=== PATIENT | female | born 1990 | race Caucasian/White ===

== ENCOUNTER 2016-12-08 17:47 | Emergency (ER) | payer SELFPAY ==
--- NOTE | 2016-12-08 18:09 | Emergency Department Record ---
History of Present Illness - General Chief Complaint: Abdominal Pain Stated Complaint: ABD PAIN Time Seen by Provider: 12/08/16 18:09 Source: Patient Mode of Arrival: Ambulatory Limitations: No limitations - History of Present Illness Initial Comments: The patient is here due to a week to 10 days of a sharp crampy AP that hurts all over and shoots down to the pelvis intermittently. She has had mild nausea with it but no vomiting. She also denies any dysuria, fever, or any vaginal discharge. The patient was slightly late for her last menses but now has started it 6 days late compared to her normal pattern. MD Complaint: Abdominal pain Onset/Timin -: Week(s) Location: Suprapubic Radiation: RLQ Migration to: RLQ Quality: Cramping, Sharp Consistency: Intermittent Improves With: Nothing Worsens With: Nothing Associated Symptoms: Nausea - Related Data LMP (females 10-50): Current Patient : (unsure) Home Medications Medication Instructions Recorded Confirmed Last Taken No Home Med [NO HOME MEDS] 12/08/16 12/08/16 Unknown Allergies Allergy/AdvReac Type Severity Reaction Status Date / Time No Known Allergies Allergy no Verified 12/08/16 18:43 allergies Travel Screening - Travel/Exposure Within Last 30 Days Have you traveled within the last 30 days?: No Review of Systems Constitutional: Denies: Chills, Fever Eyes: Denies: Eye discharge ENT: Denies: Congestion Respiratory: Denies: Cough, Dyspnea Past Medical History - SOCIAL HISTORY Smoking Status: Current every day smoker Alcohol Use: Occassional Drug Use: None - RESPIRATORY Hx Respiratory Disorders: No - CARDIOVASCULAR Hx Cardio Disorders: No - NEURO Hx Neuro Disorders: No - GI Hx GI Disorders: No - Hx Genitourinary Disorders: Yes Hx UTI: Yes - ENDOCRINE Hx Endocrine Disorders: No - MUSCULOSKELETAL Hx Musculoskeletal Disorders: No - PSYCH Hx Psych Problems: No - HEMATOLOGY/ONCOLOGY Hx Hematology/Oncology Disorders: No Family Medical History Any Significant Family History?: No Physical Exam - General General Appearance: Alert, Oriented x3, Cooperative, No acute distress - Head Head exam: Atraumatic, Normocephalic, Normal inspection - Eye Eye exam: Normal appearance, PERRL - Neck Neck exam: Normal inspection, Full ROM. negative: Tenderness - Respiratory Respiratory exam: Normal lung sounds bilaterally. negative: Respiratory distress - Cardiovascular Cardiovascular Exam: Regular rate, Normal rhythm, Normal heart sounds - GI/Abdominal GI/Abdominal exam: Soft, Tenderness (There is diffuse tenderness in all 4 quads with increased pain in the lower abdomen. There is no guarding or rebound.). negative: Guarding, Rebound, Rigid - exam: Adnexal tenderness (L), Adnexal tenderness (R), cervical motion tenderness, Normal external exam, Vaginal bleeding (Mild.). negative: Abnormal external exam, Adnexal mass (L), Adnexal mass (R), Cervical discharge, Enlarged uterus, Normal bimanual exam, Normal speculum exam, Vaginal discharge, Vaginal erythema - Extremities Extremities exam: Normal inspection, Full ROM, Normal capillary refill. negative: Tenderness - Neurological Neurological exam: Normal gait. negative: Abnormal gait Course Vital Signs 12/08/16 17:51 Temperature 97.5 F L Pulse Rate 86 Respiratory 20 Rate Blood Pressure 118/73 Pulse Ox 100 - Reevaluation(s) Reevaluation #1: The patient's care will be turned over to Dr. Ivy due to shift change. 12/08/16 18:53 Medical Decision Making - Lab Data Result diagrams: 12/08/16 18:20 12/08/16 18:20 Disposition Forms: Patient Portal Access
[2016-12-08] MEDS ORDERED: 0.9 % SODIUM CHLORIDE 1,000 ML BAG IV ONE (18:11)
[2016-12-08] MEDS ORDERED: ONDANSETRON HCL IV 4 MG/2 ML VIAL IVP ONE (18:19)
[2016-12-08 18:27] LABS: URINE APPEARANCE CLEAR; URINE BILIRUBIN NEGATIVE (NEGATIVE); URINE BLOOD NEGATIVE (NEGATIVE); URINE COLOR YELLOW; URINE GLUCOSE (UA) NEGATIVE (NEGATIVE); URINE KETONE NEGATIVE (NEGATIVE); URINE LEUKOCYTE ESTERASE NEGATIVE (NEGATIVE); URINE NITRITE NEGATIVE (NEGATIVE); URINE PROTEIN NEGATIVE (NEGATIVE); URINE UROBILINOGEN 0.2 E.U./dL (0.20 - 1.00)
[2016-12-08 18:30] LABS: BASO % 0.4 % (0-6); EOS % 1.3 % (0-6); GRAN % 70.1 % (47-80); HEMATOCRIT 37.9 % (35.0-47.0); HEMOGLOBIN 12.9 gm/dl (11.6-16.0); LYMPH % 19.3 % (16-45); MEAN CELL VOLUME 90.9 fl (81-97); MEAN CORPUSCULAR HEMOGLOBIN 30.9 pg (27-33); MEAN PLATELET VOLUME 11.1 fl (7.4-10.4); MONO % 8.9 % (0-9); PLATELET COUNT 225 K/uL (130-400); RED BLOOD COUNT 4.17 M/uL (3.80-5.40); RED CELL DISTRIBUTION WIDTH 12.9 % (11.5-14.5); WHITE BLOOD COUNT W/O DIFF 9.5 K/uL (4.2-12.2)
[2016-12-08] MEDS ORDERED: MORPHINE SULFATE 5 MG/ML PFS IVP ONE (18:30)
[2016-12-08 18:44] LABS: ALBUMIN 4.7 gm/dL (3.5-5.0); ALKALINE PHOSPHATASE 58 U/L (38-126); ALT/SGPT 22 U/L (9-52); ANION GAP 15.9 (7-16); AST/SGOT 19 U/L (14-36); BILIRUBIN,TOTAL 0.66 mg/dL (0.2-1.3); BLOOD UREA NITROGEN 7 mg/dL (7-17); CARBON DIOXIDE 23.1 mmol/L (22-30); CREATININE 0.7 mg/dL (0.52-1.04); EST GLOMERULAR FILTRATION RATE > 60 ml/min; GLUCOSE,RANDOM 87 mg/dL (70-110); LIPASE 37 U/L (23-300); TOTAL PROTEIN 7.2 gm/dL (6.3-8.2)
--- NOTE | 2016-12-08 19:10 | Emergency Department Record ---
History of Present Illness - General Chief Complaint: Abdominal Pain Stated Complaint: ABD PAIN Time Seen by Provider: 12/08/16 18:09 Source: Patient Mode of Arrival: Ambulatory Limitations: No limitations - History of Present Illness Initial Comments: 26 yo female presents with 10 days of pelvic pain She was seen by Dr Naik and turned over at 7pm The patient is currently in US. MD Complaint: Abdominal pain Onset/Timin -: Week(s) Location: Suprapubic Radiation: RLQ Migration to: RLQ Quality: Cramping, Sharp Consistency: Intermittent Improves With: Nothing Worsens With: Nothing Associated Symptoms: Nausea - Related Data LMP (females 10-50): Current Patient : (unsure) Home Medications Medication Instructions Recorded Confirmed Last Taken No Home Med [NO HOME MEDS] 12/08/16 12/08/16 Unknown Allergies Allergy/AdvReac Type Severity Reaction Status Date / Time No Known Allergies Allergy no Verified 12/08/16 18:43 allergies Travel Screening - Travel/Exposure Within Last 30 Days Have you traveled within the last 30 days?: No Review of Systems Constitutional: Denies: Chills, Fever Eyes: Denies: Eye discharge ENT: Denies: Congestion Respiratory: Denies: Cough, Dyspnea Past Medical History - SOCIAL HISTORY Smoking Status: Current every day smoker Alcohol Use: Occassional Drug Use: None - RESPIRATORY Hx Respiratory Disorders: No - CARDIOVASCULAR Hx Cardio Disorders: No - NEURO Hx Neuro Disorders: No - GI Hx GI Disorders: No - Hx Genitourinary Disorders: Yes Hx UTI: Yes - ENDOCRINE Hx Endocrine Disorders: No - MUSCULOSKELETAL Hx Musculoskeletal Disorders: No - PSYCH Hx Psych Problems: No - HEMATOLOGY/ONCOLOGY Hx Hematology/Oncology Disorders: No Family Medical History Any Significant Family History?: No Physical Exam - General Limitations: No limitations Course Vital Signs 12/08/16 17:51 Temperature 97.5 F L Pulse Rate 86 Respiratory 20 Rate Blood Pressure 118/73 Pulse Ox 100 - Reevaluation(s) Reevaluation #1: The patient remains in US. 12/08/16 20:21 Reevaluation #2: The patient returned from radiology She reports she is very comfortable. She declined any additional pain medications US is pending I reviewed the labs including CBC,UA and negative HCG with the patient. 12/08/16 20:51 Reevaluation #3: The US was reviewed Bilateral ovarian cysts, complex 4cm, small FF, positive flow bilateral I discussed the US reports I discussed treating with Rocephin and Zithro while the cultures are pending given the discomfort on the pelvic examination She is in agreement 12/08/16 21:10 Medical Decision Making - Lab Data Result diagrams: 12/08/16 18:20 12/08/16 18:20 Lab Results 12/08/16 12/08/16 12/08/16 Range/Units 18:20 18:20 18:20 WBC 9.5 (4.2-12.2) K/uL RBC 4.17 (3.80-5.40) M/uL Hgb 12.9 (11.6-16.0) gm/dl Hct 37.9 (35.0-47.0) % MCV 90.9 (81-97) fl MCH 30.9 (27-33) pg MCHC 34.0 (32-36) g/dl RDW 12.9 (11.5-14.5) % Plt Count 225 (130-400) K/uL MPV 11.1 H (7.4-10.4) fl Gran % 70.1 (47-80) % Lymphocytes % 19.3 (16-45) % Monocytes % 8.9 (0-9) % Eosinophils % 1.3 (0-6) % Basophils % 0.4 (0-6) % Sodium 140 (136-145) mmol/L Potassium 3.7 (3.5-5.1) mmol/L Chloride 101 (98-107) mmol/L Carbon Dioxide 23.1 (22-30) mmol/L Anion Gap 15.9 (7-16) BUN 7 (7-17) mg/dL Creatinine 0.7 (0.52-1.04) mg/dL Estimated GFR > 60 ml/min Random Glucose 87 (70-110) mg/dL Calcium 9.2 (8.5-10.1) mg/dL Total Bilirubin 0.66 (0.2-1.3) mg/dL Direct Bilirubin 0.0 (0-0.3) mg/dL AST 19 (14-36) U/L ALT 22 (9-52) U/L Alkaline Phosphatase 58 (38-126) U/L Total Protein 7.2 (6.3-8.2) gm/dL Albumin 4.7 (3.5-5.0) gm/dL Lipase 37 (23-300) U/L Serum HCG, Qual (NEGATIVE) Urine Color Yellow Urine Appearance Clear Urine pH 7.5 (5.0-8.0) Ur Specific [place] 1.015 (1.002-1.030) Urine Protein Negative (NEGATIVE) Urine Glucose (UA) Negative (NEGATIVE) Urine Ketones Negative (NEGATIVE) Urine Blood Negative (NEGATIVE) Urine Nitrite Negative (NEGATIVE) Urine Bilirubin Negative (NEGATIVE) Urine Urobilinogen 0.2 (0.20 - 1.00) E.U./dL Ur Leukocyte Esterase Negative (NEGATIVE) Wet Prep 12/08/16 12/08/16 Range/Units 18:20 18:32 WBC (4.2-12.2) K/uL RBC (3.80-5.40) M/uL Hgb (11.6-16.0) gm/dl Hct (35.0-47.0) % MCV (81-97) fl MCH (27-33) pg MCHC (32-36) g/dl RDW (11.5-14.5) % Plt Count (130-400) K/uL MPV (7.4-10.4) fl Gran % (47-80) % Lymphocytes % (16-45) % Monocytes % (0-9) % Eosinophils % (0-6) % Basophils % (0-6) % Sodium (136-145) mmol/L Potassium (3.5-5.1) mmol/L Chloride (98-107) mmol/L Carbon Dioxide (22-30) mmol/L Anion Gap (7-16) BUN (7-17) mg/dL Creatinine (0.52-1.04) mg/dL Estimated GFR ml/min Random Glucose (70-110) mg/dL Calcium (8.5-10.1) mg/dL Total Bilirubin (0.2-1.3) mg/dL Direct Bilirubin (0-0.3) mg/dL AST (14-36) U/L ALT (9-52) U/L Alkaline Phosphatase (38-126) U/L Total Protein (6.3-8.2) gm/dL Albumin (3.5-5.0) gm/dL Lipase (23-300) U/L Serum HCG, Qual Negative (NEGATIVE) Urine Color Urine Appearance Urine pH (5.0-8.0) Ur Specific [place] (1.002-1.030) Urine Protein (NEGATIVE) Urine Glucose (UA) (NEGATIVE) Urine Ketones (NEGATIVE) Urine Blood (NEGATIVE) Urine Nitrite (NEGATIVE) Urine Bilirubin (NEGATIVE) Urine Urobilinogen (0.20 - 1.00) E.U./dL Ur Leukocyte Esterase (NEGATIVE) Wet Prep No trich or yeast Disposition Disposition: Discharge Clinical Impression: Cyst of ovary Qualifiers: Laterality: bilateral Qualified Code(s): N83.201 - Unspecified ovarian cyst, right side; N83.202 - Unspecified ovarian cyst, left side Disposition: Home, Self-Care Condition: (1) Good Instructions: Ovarian Cyst (ED) Additional Instructions: Motrin for discomfort Return if you have uncontrolled pain, fever, vomiting or concerns You are being referred to [facility]BGYN at the [facility] Referrals: ERICKA NASH [DOCTOR OF OSTEOPATH] - [facility] [Provider Group] Forms: Patient Portal Access Time of Disposition: 21:12
[2016-12-08] MEDS ORDERED: ONDANSETRON 4 MG ODT TABLET SL ONE (21:08)
[2016-12-08] MEDS ORDERED: CEFTRIAXONE 250 MG VIAL IM ONE (21:08)
[2016-12-08] MEDS ORDERED: AZITHROMYCIN 500 MG TABLET PO ONE (21:08)
[2016-12-08] MEDS ORDERED: IBUPROFEN 600 MG TABLET PO ONE (21:31)
[2016-12-12 17:14] LABS: GC SPECIMEN TYPE Vaginal (())
--- NOTE | 2016-12-14 10:33 | ULTRASOUND REPORT ---
DATE: 12/08/2016. EXAM: PELVIC ULTRASOUND. HISTORY: Pelvic pain. TECHNIQUE: Transvaginal and transabdominal sonographic evaluation of the pelvis was performed using lazo-scale imaging with the addition of color flow Doppler and spectral analysis. FINDINGS: The uterus measures 7.8 x 3.7 x 5.3 cm. The endometrial stripe measures 6.0 mm. The right ovary measures 4.3 x 2.3 x 3.5 cm. The left ovary measures 5.8 x 4.5 x 6.8 cm. There are two complex cysts in the left ovary measuring approximately 4.0 cm and 2.0 cm. There is a complex cyst in the right ovary measuring 3.0 cm. There is flow identified through the right and left ovaries. There is free fluid in the cul-de-sac. IMPRESSION: COMPLEX CYSTS OF BOTH OVARIES DESCRIBED ABOVE. THERE APPEARS TO BE FLOW IDENTIFIED TO BOTH OVARIES. THERE IS FREE FLUID IN THE CUL-DE-SAC. SHORT-TERM FOLLOW UP IN ONE TO TWO MENSTRUAL CYCLES IS RECOMMENDED. JOB NUMBER: [id number] MTDD
== END 2016-12-08 21:45 | disposition home or self-care (01) ==
LOC: ER 17:47
DX: N83.202 Unspecified ovarian cyst, left side (principal); N83.201 Unspecified ovarian cyst, right side; R11.0 Nausea; R10.31 Right lower quadrant pain
CPT/HCPCS: 99284 ×2; 96374; 96372; 83690; 85025; 80076; 80048; 81003; 84703; 76856; 76830; Q0111; J2405; J0696; 87210; J7030

== ENCOUNTER 2017-02-25 03:36 | Emergency (ER) | payer MEDICAID ==
[2017-02-25] MEDS ORDERED: KETOROLAC 30 MG/ML VIAL IVP ONE (04:17)
--- NOTE | 2017-02-25 04:23 | Emergency Department Record ---
History of Present Illness - General Chief Complaint: Abdominal Pain Stated Complaint: EXTREME PELVIC PAIN Time Seen by Provider: 02/25/17 04:16 Source: Patient Mode of Arrival: Ambulatory Limitations: No limitations - History of Present Illness Initial Comments: 27 yo female presents to ED with a CC of diffuse abdominal pain and right shoulder pain symptoms intermittently for the past 3 months. Patient reports that she was seen 12/08/16 in ED, pelvic US demonstrated small cysts bilaterally and fluid in the cul-de-sac, pelvic examination was negative. Patient then followed up with Dr. Ramon, was diagnosed with cervical dysplaisa III and is scheduled for a LEEP procedure next month. Patient also has an appointment scheduled with her outdoor studies director Dr. Chin on 03/07/17 for her ongoing pain symptoms. Patient does report dysuria symptoms, denies vaginal discharge symptoms and reports that she is in a monogamous relationship. Patient denies fevers, chills, nausea, or vomiting symptoms. Patient reports that her pain symptoms are similar to previous episodes. MD Complaint: Abdominal pain Onset/Timin -: Hour(s) Location: Diffuse Radiation: Other Severity: Severe Quality: Other Consistency: Constant Improves With: Nothing Worsens With: Movement Associated Symptoms: Dysuria Treatments Prior to Arrival: NSAIDs - Related Data LMP (females 10-50): Current Patient : No Previous Rx's Medication Instructions Recorded Hydrocodone/Acetaminophen [[place] 1 tab PO Q6H PRN #5 tab 02/25/17 5mg/325mg] Ondansetron [Zofran Odt] 4 mg PO Q6H PRN #10 tab.rapdis 02/25/17 Allergies Allergy/AdvReac Type Severity Reaction Status Date / Time No Known Allergies Allergy no Verified 12/08/16 18:43 allergies Travel Screening - Travel/Exposure Within Last 30 Days Have you traveled within the last 30 days?: No - Travel Symptoms Symptom Screening: None Review of Systems Constitutional: Denies: Chills, Fever, Malaise, Night sweats Eyes: Denies: Eye discharge, Eye pain ENT: Denies: Congestion, Ear pain, Epistaxis Respiratory: Denies: Cough, Dyspnea Cardiovascular: Denies: Chest pain, Dyspnea on exertion Endocrine: Denies: Fatigue, Heat or cold intolerance Gastrointestinal: Reports: Abdominal pain. Denies: Constipation, Diarrhea, Nausea, Vomiting Genitourinary: Reports: Dysuria. Denies: Frequency, Hematuria, Incontinence Musculoskeletal: Denies: Arthralgia, Back pain, Gout, Joint swelling Skin: Denies: Bruising, Change in color, Change in hair/nails, Rash Neurological: Denies: Abnormal gait, Confusion, Headache, Seizure Psychiatric: Denies: Anxiety Hematological/Lymphatic: Denies: Anemia, Blood Clots Past Medical History - SOCIAL HISTORY Smoking Status: Current every day smoker - [employer] History : 0 - RESPIRATORY Hx Respiratory Disorders: No - CARDIOVASCULAR Hx Cardio Disorders: No - NEURO Hx Neuro Disorders: No - GI Hx GI Disorders: No - Hx Genitourinary Disorders: Yes Hx Kidney Stones: Yes (2008) Hx UTI: Yes Comment:: colposcopy - ENDOCRINE Hx Endocrine Disorders: No - MUSCULOSKELETAL Hx Musculoskeletal Disorders: No - PSYCH Hx Psych Problems: No - HEMATOLOGY/ONCOLOGY Hx Hematology/Oncology Disorders: No Family Medical History Any Significant Family History?: Yes Hx Cancer: Mother, Grandparents *Cancer Comment: mom w/cervical Physical Exam - General General Appearance: Alert, Oriented x3, Cooperative, Moderate distress, Other ( patient is tearful on examination, denies opiate pain medication for her symptoms when offered.) Limitations: No limitations - Head Head exam: Atraumatic, Normocephalic, Normal inspection Head exam detail: negative: Abrasion, Contusion, Jarvis's sign, General tenderness, Hematoma, Laceration - Eye Eye exam: Normal appearance. negative: Conjunctival injection, Periorbital swelling, Periorbital tenderness, Scleral icterus - ENT Ear exam: negative: Auricular hematoma, Auricular trauma Nasal Exam: negative: Active bleeding, Discharge, Dried blood, Foreign body Mouth exam: negative: Drooling, Laceration, Muffled voice, Tongue elevation - Neck Neck exam: Normal inspection. negative: Meningismus, Tenderness - Respiratory Respiratory exam: Normal lung sounds bilaterally. negative: Rales, Respiratory distress, Rhonchi, Stridor - Cardiovascular Cardiovascular Exam: Regular rate, Normal rhythm, Normal heart sounds - GI/Abdominal GI/Abdominal exam: Soft, Tenderness, Other (Diffuse TTP on examination, no rebound, guarding is present.). negative: Rebound, Rigid - Rectal Rectal exam: Deferred - exam: Deferred - Extremities Extremities exam: Normal inspection. negative: Pedal edema, Tenderness - Back Back exam: Denies: CVA tenderness (R), CVA tenderness (L) - Neurological Neurological exam: Alert, Normal gait, Oriented X3 - Psychiatric Psychiatric exam: Normal affect, Normal mood - Skin Skin exam: Normal color. negative: Abrasion Type of lesion: negative: abrasion Course Vital Signs 02/25/17 04:10 Temperature 99.0 F Pulse Rate [ 80 Pulse Ox Probe] Respiratory 18 Rate Blood Pressure 118/74 [Left Arm] Pulse Ox 99 - Reevaluation(s) Reevaluation #1: 02/25/17 04:23 Previous records reviewed: US 12/08/16 Pelvis: Bilateral cysts, good flow bilaterally, fluids in the cul-de-sac, nothing acute. I discussed performing pelvic examination to exclude pelvic infection as a source of the patient's symptoms, patient is declining as she denies vaginal discharge symptoms and reports two recent pelvic symptoms that were negative for infection and has pelvic examination scheduled for 03/07/17 with her OB. Patient is declining opiate pain medication for her symptoms at this time. Will administer Toradol and reassess. Given the patient's abdominal examination findings, will perform CT imaging to exclude an acute surgical process. Reevaluation #2: 02/25/17 06:18 Labs reviewed and are grossly unremarkable for an acute process. CT Abdomen and Pelvis: Left ovary may be c/w endometrioma Patient was updated on all results, reports that her pain symptoms are slightly better. Will administer [place] and Zofran, and appears stable for discharge at this time. Medical Decision Making - Lab Data Result diagrams: 02/25/17 04:25 02/25/17 04:25 Disposition Disposition: Discharge Clinical Impression: Abdominal pain Qualifiers: Abdominal location: generalized Qualified Code(s): R10.84 - Generalized abdominal pain Disposition: Home, Self-Care Condition: (2) Stable Instructions: Abdominal Pain (ED) Additional Instructions: Return to ED if your symptoms worsen or if you have any concerns. Follow-up with Dr. Ramon/Giuseppe in 3-5 days as directed. [place] and Zofran as directed. Prescriptions: Hydrocodone/Acetaminophen [[place] 5mg/325mg] 1 tab PO Q6H PRN #5 tab PRN Reason: Pain - General Ondansetron [Zofran Odt] 4 mg PO Q6H PRN #10 tab.rapdis PRN Reason: Nausea/Vomiting Forms: Patient Portal Access Time of Disposition: 04:28
[2017-02-25] MEDS ORDERED: 0.9 % SODIUM CHLORIDE 1000ML 1,000 ML IV SCH (04:30)
[2017-02-25 04:36] LABS: BASO % 0.2 % (0-6); EOS % 0.4 % (0-6); HEMATOCRIT 35.9 % (35.0-47.0); HEMOGLOBIN 11.9 gm/dl (11.6-16.0); LYMPH % 6.8 % (16-45); MEAN CELL VOLUME 91.3 fl (81-97); MEAN CORPUSCULAR HEMOGLOBIN 30.3 pg (27-33); MEAN CORPUSCULAR HGB CONC 33.1 g/dl (32-36); MEAN PLATELET VOLUME 10.6 fl (7.4-10.4); MONO % 5.8 % (0-9); PLATELET COUNT 211 K/uL (130-400); RED BLOOD COUNT 3.93 M/uL (3.80-5.40); RED CELL DISTRIBUTION WIDTH 12.5 % (11.5-14.5); WHITE BLOOD COUNT W/O DIFF 12.1 K/uL (4.2-12.2)
[2017-02-25 04:46] LABS: ALB/GLOB RATIO 1.6 (1.1-1.8); ALBUMIN 4.2 gm/dL (3.5-5.0); ALKALINE PHOSPHATASE 59 U/L (38-126); ALT/SGPT 29 U/L (9-52); ANION GAP 10.7 (7-16); AST/SGOT 27 U/L (14-36); BILIRUBIN,TOTAL 1.04 mg/dL (0.2-1.3); BLOOD UREA NITROGEN 11 mg/dL (7-17); CARBON DIOXIDE 24.3 mmol/L (22-30); CREATININE 0.8 mg/dL (0.52-1.04); EST GLOMERULAR FILTRATION RATE > 60 ml/min; GLUCOSE,RANDOM 108 mg/dL (70-110); LIPASE 40 U/L (23-300); TOTAL PROTEIN 6.8 gm/dL (6.3-8.2)
[2017-02-25 05:15] LABS: URINE APPEARANCE CLEAR; URINE BILIRUBIN NEGATIVE (NEGATIVE); URINE BLOOD LARGE (NEGATIVE); URINE COLOR YELLOW; URINE GLUCOSE (UA) NEGATIVE (NEGATIVE); URINE KETONE NEGATIVE (NEGATIVE); URINE LEUKOCYTE ESTERASE NEGATIVE (NEGATIVE); URINE NITRITE NEGATIVE (NEGATIVE); URINE PROTEIN NEGATIVE (NEGATIVE)
[2017-02-25 05:18] LABS: HCG,QUALITATIVE URINE NEGATIVE (NEGATIVE)
[2017-02-25 05:24] LABS: URINE AMORPHOUS SEDIMENT 4+; URINE EPITHELIAL CELLS 0 - 2 (FEW); URINE RBC 16 - 25 (NONE SEEN); URINE WBC 0 - 2 (0-2/hpf)
[2017-02-25] MEDS ORDERED: ONDANSETRON 4 MG ODT TABLET SL ONE (06:23)
[2017-02-25] MEDS ORDERED: HYDROCODONE/APAP 7.5/325MG TABLET PO ONE (06:23)
== END 2017-02-25 06:44 | disposition home or self-care (01) ==
LOC: ER 03:36
DX: R10.84 Generalized abdominal pain (principal); R30.0 Dysuria; M25.511 Pain in right shoulder
CPT/HCPCS: 74177; 80053; 81001; 81025; 83690; 85027; 96374; 99284; J1885; J7030

== ENCOUNTER 2017-04-28 09:28 | Emergency (ER) | payer MEDICAID ==
[2017-04-28] MEDS ORDERED: 0.9 % SODIUM CHLORIDE 1,000 ML BAG IV ONE (10:06)
[2017-04-28] MEDS ORDERED: KETOROLAC 30 MG/ML VIAL IVP ONE (10:06)
[2017-04-28 10:38] LABS: BASO % 0.3 % (0-6); EOS % 1.4 % (0-6); GRAN % 76.9 % (47-80); HEMATOCRIT 39.4 % (35.0-47.0); HEMOGLOBIN 13.1 gm/dl (11.6-16.0); LYMPH % 15.3 % (16-45); MEAN CELL VOLUME 88.9 fl (81-97); MEAN CORPUSCULAR HEMOGLOBIN 29.6 pg (27-33); MEAN CORPUSCULAR HGB CONC 33.2 g/dl (32-36); MEAN PLATELET VOLUME 10.6 fl (7.4-10.4); MONO % 6.1 % (0-9); PLATELET COUNT 283 K/uL (130-400); RED BLOOD COUNT 4.43 M/uL (3.80-5.40); RED CELL DISTRIBUTION WIDTH 12.9 % (11.5-14.5); WHITE BLOOD COUNT W/O DIFF 9.9 K/uL (4.2-12.2)
[2017-04-28 10:42] LABS: URINE APPEARANCE CLEAR; URINE BILIRUBIN NEGATIVE (NEGATIVE); URINE BLOOD NEGATIVE (NEGATIVE); URINE COLOR YELLOW; URINE GLUCOSE (UA) NEGATIVE (NEGATIVE); URINE KETONE NEGATIVE (NEGATIVE); URINE LEUKOCYTE ESTERASE NEGATIVE (NEGATIVE); URINE NITRITE NEGATIVE (NEGATIVE); URINE PROTEIN NEGATIVE (NEGATIVE); URINE UROBILINOGEN 0.2 E.U./dL (0.20 - 1.00)
[2017-04-28 10:45] LABS: HCG,QUALITATIVE URINE NEGATIVE (NEGATIVE)
--- NOTE | 2017-04-28 10:54 | Emergency Department Record ---
History of Present Illness - General Chief Complaint: Abdominal Pain Stated Complaint: PELVIC PAIN Time Seen by Provider: 04/28/17 09:59 Source: Patient Mode of Arrival: Ambulatory Limitations: No limitations - History of Present Illness Initial Comments: pt has had an hour of rlq pain that was significant and now has lessened. she has had this in the past 5 months and has had a previous ct and us which showed a complex mass/cyst . a repeat ultrasound was recommended. 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 MD Complaint: Abdominal pain Onset/Timin -: Hour(s) Location: RLQ Radiation: Suprapubic Migration to: No migration Severity: Mild Quality: Sharp Consistency: Constant Improves With: Other Worsens With: Nothing Associated Symptoms: Diarrhea, Nausea - Related Data LMP Date: 04/18/17 Patient : No Allergies Allergy/AdvReac Type Severity Reaction Status Date / Time No Known Allergies Allergy no Verified 04/28/17 09:36 allergies Travel Screening - Travel/Exposure Within Last 30 Days Have you traveled within the last 30 days?: No - Travel/Exposure Within Last Year Have you traveled outside the [place] in the last year?: No Review of Systems Reviewed: No additional complaints except as noted below Constitutional: Reports: As per HPI. Denies: Chills, Fever, Malaise, Night sweats, Weakness, Weight change Eyes: Reports: As per HPI. Denies: Eye discharge, Eye pain, Photophobia, Vision change ENT: Reports: As per HPI. Denies: Congestion, Dental pain, Ear pain, Epistaxis , Hearing loss, Throat pain Respiratory: Reports: As per HPI. Denies: Cough, Dyspnea, Hemoptysis, Stridor, Wheezes Cardiovascular: Reports: As per HPI. Denies: Arrhythmia, Chest pain, Dyspnea on exertion, Edema, Murmurs, Orthopnea, Palpitations, Paroxysmal nocturnal dyspnea, Rheumatic Fever, Syncope Endocrine: Reports: As per HPI. Denies: Fatigue, Heat or cold intolerance, Polydipsia, Polyuria Gastrointestinal: Reports: As per HPI. Denies: Abdominal pain, Constipation, Diarrhea, Hematemesis, Hematochezia, Melena, Nausea, Vomiting Genitourinary: Reports: As per HPI. Denies: Abnormal menses, Discharge, Dyspareunia, Dysuria, Frequency, Hematuria, Incontinence, Retention, Urgency Musculoskeletal: Reports: As per HPI. Denies: Arthralgia, Back pain, Gout, Joint swelling, Myalgia, Neck pain Skin: Reports: As per HPI. Denies: Bruising, Change in color, Change in hair/ nails, Lesions, Pruritus, Rash Neurological: Reports: As per HPI. Denies: Abnormal gait, Confusion, Headache, Numbness, Paresthesias, Seizure, Tingling, Tremors, Vertigo, Weakness Psychiatric: Reports: As per HPI. Denies: Anxiety, Auditory hallucinations, Depression, Homicidal thoughts, Suicidal thoughts, Visual hallucinations Hematological/Lymphatic: Reports: As per HPI. Denies: Anemia, Blood Clots, Easy bleeding, Easy bruising, Swollen glands Past Medical History - SOCIAL HISTORY Smoking Status: Current every day smoker Alcohol Use: Occassional Drug Use: None - RESPIRATORY Hx Respiratory Disorders: No - CARDIOVASCULAR Hx Cardio Disorders: No - NEURO Hx Neuro Disorders: No - GI Hx GI Disorders: No - Hx Genitourinary Disorders: Yes Hx Kidney Stones: Yes (2008) Hx UTI: Yes Comment:: colposcopy - ENDOCRINE Hx Endocrine Disorders: No - MUSCULOSKELETAL Hx Musculoskeletal Disorders: No - PSYCH Hx Psych Problems: No - HEMATOLOGY/ONCOLOGY Hx Hematology/Oncology Disorders: No Family Medical History Any Significant Family History?: Yes Hx Cancer: Mother, Grandparents *Cancer Comment: mom w/cervical Physical Exam - General General Appearance: Alert, Oriented x3, Cooperative, Mild distress - Head Head exam: Normal inspection - Eye Eye exam: Normal appearance, PERRL, EOMI Pupils: Normal accommodation - ENT ENT exam: Normal exam, Mucous membranes moist, Normal external ear exam, Normal orophraynx Ear exam: Normal external inspection. negative: External canal tenderness Nasal Exam: Normal inspection. negative: Discharge, Sinus tenderness Mouth exam: Normal external inspection, Tongue normal Teeth exam: Normal inspection. negative: Dental caries Throat exam: Normal inspection. negative: Tonsillar erythema, Tonsillar exudate - Neck Neck exam: Normal inspection, Full ROM. negative: Tenderness - Respiratory Respiratory exam: Normal lung sounds bilaterally. negative: Respiratory distress - Cardiovascular Cardiovascular Exam: Regular rate, Normal rhythm, Normal heart sounds - GI/Abdominal GI/Abdominal exam: Soft, Normal bowel sounds, Tenderness (rlq) - Rectal Rectal exam: Deferred - exam: Deferred - Extremities Extremities exam: Normal inspection, Full ROM, Normal capillary refill. negative: Tenderness - Back Back exam: Reports: Normal inspection, Full ROM. Denies: Muscle spasm, Rash noted, Tenderness - Neurological Neurological exam: Alert, Normal gait, Oriented X3, Reflexes normal - Psychiatric Psychiatric exam: Normal affect, Normal mood - Skin Skin exam: Dry, Intact, Normal color, Warm Course Vital Signs 04/28/17 09:36 Temperature 98.1 F Pulse Rate 66 Respiratory 16 Rate Blood Pressure 115/81 Pulse Ox 98 - Reevaluation(s) Reevaluation #1: 04/28/17 12:39 us shows persistant solid appearing mass on l ovary. d/w dr haskins who will see pt on monday Reevaluation #2: 04/28/17 12:42 pts pain is on right and most likely mittleschmurz. pts mass is on l ovary Medical Decision Making - Lab Data Result diagrams: 04/28/17 10:15 04/28/17 10:15 Lab Results 04/28/17 04/28/17 Range/Units 10:15 10:15 WBC 9.9 (4.2-12.2) K/uL RBC 4.43 (3.80-5.40) M/uL Hgb 13.1 (11.6-16.0) gm/dl Hct 39.4 (35.0-47.0) % MCV 88.9 (81-97) fl MCH 29.6 (27-33) pg MCHC 33.2 (32-36) g/dl RDW 12.9 (11.5-14.5) % Plt Count 283 (130-400) K/uL MPV 10.6 H (7.4-10.4) fl Gran % 76.9 (47-80) % Lymphocytes % 15.3 L (16-45) % Monocytes % 6.1 (0-9) % Eosinophils % 1.4 (0-6) % Basophils % 0.3 (0-6) % Urine Color Yellow Urine Appearance Clear Urine pH 6.0 (5.0-8.0) Ur Specific [place] 1.020 (1.002-1.030) Urine Protein Negative (NEGATIVE) Urine Glucose (UA) Negative (NEGATIVE) Urine Ketones Negative (NEGATIVE) Urine Blood Negative (NEGATIVE) Urine Nitrite Negative (NEGATIVE) Urine Bilirubin Negative (NEGATIVE) Urine Urobilinogen 0.2 (0.20 - 1.00) E.U./dL Ur Leukocyte Esterase Negative (NEGATIVE) Urine HCG, Qual Negative (NEGATIVE) Disposition Disposition: Discharge Clinical Impression: Ovarian mass, left, Mittelschmerz Disposition: Home, Self-Care Additional Instructions: follow up monday with dr haskins at office across [address]. return sooner if worse Referrals: ERICKA HASKINS [DOCTOR OF OSTEOPATH] - Forms: Patient Portal Access
[2017-04-28 11:37] LABS: BLOOD UREA NITROGEN 11 mg/dL (7-17); CREATININE 0.7 mg/dL (0.52-1.04); EST GLOMERULAR FILTRATION RATE > 60 ml/min; GLUCOSE,RANDOM 86 mg/dL (70-110)
--- NOTE | 2017-04-30 17:18 | ULTRASOUND REPORT ---
DATE: 04/28/2017. EXAM: PELVIC ULTRASOUND. HISTORY: PELVIC PAIN. TECHNIQUE: Transabdominal and transvaginal sonographic images of the pelvis. COMPARISON: CT from 03/02/2017. Ultrasound from 12/08/2016. FINDINGS: On transabdominal images, the endometrium measures 7.0 mm in thickness. The myometrium is homogenous. The ovaries are less well seen transabdominally. On transvaginal imaging, the endometrium measures 10 mm in thickness. The myometrium is homogenous. The right ovary measures 2.9 x 3.3 x 2.7 cm. The left ovary measures 6.3 x 4.4 x 7.5 cm. Right ovarian follicles are present. There is a moderate to large amount of free fluid in the right adnexa which appears moderately complex. Doppler and spectral analysis with color flow was utilized. Arterial and venous flow to both ovaries. There is a solid- appearing mass which appears to occupy nearly the entire left ovary. Similar findings were present previously. This likely relates to hemorrhagic cyst or endometrioma. Given the persistence of findings, could consider further assessment with dedicated MRI. IMPRESSION: 1. LITTLE CHANGE IN THE SOLID MASS ASSOCIATED WITH THE LEFT OVARY. THIS MAY RELATE TO HEMORRHAGIC CYST OR ENDOMETRIOMA. GIVEN THE PERSISTENCE OF FINDINGS, COULD CONSIDER FOLLOW UP WITH MRI. 2. A MODERATE AMOUNT OF COMPLEX FREE FLUID IN THE RIGHT ADNEXA. RIGHT OVARIAN FOLLICLES ARE PRESENT. JOB NUMBER: [id number] MTDD
== END 2017-04-28 12:50 | disposition home or self-care (01) ==
LOC: ER 09:28
DX: N83.9 Noninflammatory disorder of ovary, fallopian tube and broad ligament, unspecified (principal); N94.0 Mittelschmerz; R19.7 Diarrhea, unspecified; R11.0 Nausea; R10.31 Right lower quadrant pain
CPT/HCPCS: 99284 ×2; 96374; 96361; 85025; 80048; 81003; 81025; 76856; 76830; J1885; J7030

== ENCOUNTER 2019-07-12 11:15 | Emergency (ER) | payer BC, MEDICAID ==
[2019-07-12] MEDS ORDERED: KETOROLAC 30 MG/ML VIAL IVP ONE (11:40)
--- NOTE | 2019-07-12 11:51 | Emergency Department Record ---
History of Present Illness - General Chief Complaint: Fall Injury Stated Complaint: BACK PAIN Time Seen by Provider: 07/12/19 11:21 Source: Patient Mode of Arrival: Stretcher Limitations: No limitations - History of Present Illness Initial Comments: pt was 'catapulted' off a horse last night and has pain in pelvis.. 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: Yes, by family Place Fall Occurred: Other Loss of Consciousness: None Prolonged Down Time?: No Symptoms Prior to Fall: None Location: Back, Pelvis, Buttocks Severity: Moderate Severity scale (1-10): >10 Quality: Aching, Sharp Context: Other - [place] Coma Scale Eye Response: (4) Open spontaneously Motor Response: (6) Obeys commands Verbal Response: (5) Oriented Alisson Total: 15 - Related Data Home Medications Medication Instructions Recorded Confirmed Last Taken Levonorgestrel-Ethin Estradiol 1 each PO DAILY 07/12/19 07/12/19 1 Day Ago [[place] 0.15 mg-0.03 mg Tab] ~07/11/19 Norethindrone Acetate 10 mg PO DAILY 07/12/19 07/12/19 1 Day Ago ~07/11/19 Previous Rx's Medication Instructions Recorded Docusate Sodium [Colace] 100 mg PO BID #30 cap 07/12/19 Hydrocodone/Acetaminophen [[place] 1 each PO Q6HR #12 tablet 07/12/19 5-325 Tablet] Ibuprofen [Motrin] 800 mg PO Q8H PRN #30 tab 07/12/19 Allergies Allergy/AdvReac Type Severity Reaction Status Date / Time No Known Allergies Allergy no Verified 07/12/19 11:27 allergies Travel Screening - Travel/Exposure Within Last 30 Days Have you traveled within the last 30 days?: No - Travel/Exposure Within Last Year Have you traveled outside the [place] in the last year?: No - Additonal Travel Details Have you been exposed to anyone with a communicable illness?: No - Travel Symptoms Symptom Screening: None Review of Systems Reviewed: No additional complaints except as noted below Constitutional: Reports: As per HPI. Denies: Chills, Fever, Malaise, Night sweats, Weakness, Weight change Eyes: Reports: As per HPI. Denies: Eye discharge, Eye pain, Photophobia, Vision change ENT: Reports: As per HPI. Denies: Congestion, Dental pain, Ear pain, Epistaxis, Hearing loss, Throat pain Respiratory: Reports: As per HPI. Denies: Cough, Dyspnea, Hemoptysis, Stridor, Wheezes Cardiovascular: Reports: As per HPI. Denies: Arrhythmia, Chest pain, Dyspnea on exertion, Edema, Murmurs, Orthopnea, Palpitations, Paroxysmal nocturnal dyspnea, Rheumatic Fever, Syncope Endocrine: Reports: As per HPI. Denies: Fatigue, Heat or cold intolerance, Polydipsia, Polyuria Gastrointestinal: Reports: As per HPI. Denies: Abdominal pain, Constipation, Diarrhea, Hematemesis, Hematochezia, Melena, Nausea, Vomiting Genitourinary: Reports: As per HPI. Denies: Abnormal menses, Discharge, Dyspareunia, Dysuria, Frequency, Hematuria, Incontinence, Retention, Urgency Musculoskeletal: Reports: As per HPI. Denies: Arthralgia, Back pain, Gout, Joint swelling, Myalgia, Neck pain Skin: Reports: As per HPI. Denies: Bruising, Change in color, Change in hair/nails, Lesions, Pruritus, Rash Neurological: Reports: As per HPI. Denies: Abnormal gait, Confusion, Headache, Numbness, Paresthesias, Seizure, Tingling, Tremors, Vertigo, Weakness Psychiatric: Reports: As per HPI. Denies: Anxiety, Auditory hallucinations, Depression, Homicidal thoughts, Suicidal thoughts, Visual hallucinations Hematological/Lymphatic: Reports: As per HPI. Denies: Anemia, Blood Clots, Easy bleeding, Easy bruising, Swollen glands Past Medical History - SOCIAL HISTORY Smoking Status: Current every day smoker Alcohol Use: Occasional Drug Use: Occasional Drug Use Detail:: Marijuana - RESPIRATORY Hx Respiratory Disorders: No - CARDIOVASCULAR Hx Cardio Disorders: No - NEURO Hx Neuro Disorders: No - GI Hx GI Disorders: No - Hx Genitourinary Disorders: Yes Hx Kidney Stones: Yes (2008) Hx UTI: Yes Comment:: colposcopy, endometreosis - ENDOCRINE Hx Endocrine Disorders: No - MUSCULOSKELETAL Hx Musculoskeletal Disorders: No - PSYCH Hx Psych Problems: No - HEMATOLOGY/ONCOLOGY Hx Hematology/Oncology Disorders: No Family Medical History Any Significant Family History?: Yes Hx Cancer: Mother, Grandparents *Cancer Comment: mom w/cervical Physical Exam - General General Appearance: Alert, Oriented x3, Cooperative, Moderate distress - Head Head exam: Normal inspection - Eye Eye exam: Normal appearance, PERRL, EOMI Pupils: Normal accommodation - ENT ENT exam: Normal exam, Mucous membranes moist, Normal external ear exam, Normal orophraynx Ear exam: Normal external inspection. negative: External canal tenderness Nasal Exam: Normal inspection. negative: Discharge, Sinus tenderness Mouth exam: Normal external inspection, Tongue normal Teeth exam: Normal inspection. negative: Dental caries Throat exam: Normal inspection. negative: Tonsillar erythema, Tonsillar exudate - Neck Neck exam: Normal inspection, Full ROM. negative: Tenderness - Respiratory Respiratory exam: Normal lung sounds bilaterally. negative: Respiratory distress - Cardiovascular Cardiovascular Exam: Regular rate, Normal rhythm, Normal heart sounds - GI/Abdominal GI/Abdominal exam: Soft, Normal bowel sounds, Tenderness - Rectal Rectal exam: Deferred - exam: Deferred - Extremities Extremities exam: Normal inspection, Full ROM, Normal capillary refill, Tenderness (pelvis) - Back Back exam: Reports: Normal inspection, Full ROM. Denies: Muscle spasm, Rash noted, Tenderness - Neurological Neurological exam: Alert, CN II-XII intact, Normal gait, Oriented X3 - Psychiatric Psychiatric exam: Normal affect, Normal mood - Skin Skin exam: Dry, Intact, Normal color, Warm Course Vital Signs 07/12/19 11:20 Temperature 98.1 F Pulse Rate 82 Respiratory 18 Rate Blood Pressure 130/76 P[address] Ox [address] - Reevaluation(s) Reevaluation #1: 07/12/19 11:51 pt refused iv Reevaluation #2: 07/12/19 13:45 d/w dr abigail mario who will see pt next week Medical Decision Making - Lab Data Result diagrams: 07/12/19 11:37 07/12/19 11:37 Disposition Disposition: Discharge Clinical Impression: Sacral fracture, closed Qualifiers: Encounter type: initial encounter Zone of sacrum fracture: unspecified portion of sacrum Qualified Code(s): S32.10XA - Unspecified fracture of sacrum, initial encounter for closed fracture Disposition: Home, Self-Care Condition: (1) Good Instructions: Sacral Fracture (ED) Additional Instructions: follow up with dr abigail mario next week. use walker. ice to sore area Prescriptions: Hydrocodone/Acetaminophen [[place] 5-325 Tablet] 1 each PO Q6HR #12 tablet Docusate Sodium [Colace] 100 mg PO BID #30 cap Ibuprofen [Motrin] 800 mg PO Q8H PRN #30 tab PRN Reason: Pain - Mod To Severe (5-10) Referrals: DESTINI MARIO D.O. [DOCTOR OF OSTEOPATH] - Forms: Patient Portal Access Quality - Quality Measures Quality Measures: N/A - Blood Pressure Screening Does Patient Have Any of the Following: No Blood Pressure Classification: Pre-Hypertensive BP Reading Systolic Measurement: 130 Diastolic Measurement: 76 Screening for High Blood Pressure: < Pre-Hypertensive BP, F/U Documented > [G8950] Pre-Hypertensive Follow-up Interventions: Follow-up with rescreen every year.
[2019-07-12 12:02] LABS: URINE APPEARANCE CLEAR; URINE BILIRUBIN NEGATIVE (NEGATIVE); URINE BLOOD TRACE-I (NEGATIVE); URINE COLOR YELLOW; URINE GLUCOSE (UA) NEGATIVE (NEGATIVE); URINE KETONE NEGATIVE (NEGATIVE); URINE LEUKOCYTE ESTERASE MODERATE (NEGATIVE); URINE NITRITE NEGATIVE (NEGATIVE); URINE PROTEIN NEGATIVE (NEGATIVE); URINE UROBILINOGEN 0.2 E.U./dL (0.20 - 1.00)
[2019-07-12 12:12] LABS: HCG,QUALITATIVE URINE NEGATIVE (NEGATIVE); URINE RBC 0 - 2 (NONE SEEN)
[2019-07-12] MEDS ORDERED: IBUPROFEN 400 MG TABLET PO ONE (13:20)
--- NOTE | 2019-07-13 23:19 | CT SCAN REPORT ---
EXAM: CT SCAN ABDOMEN/PELVIS WO CONTRAST HISTORY: LOWER BACK AND PELVIC PAIN AFTER BEING THROWN FROM HORSE ONE DAY AGO. TECHNIQUE: Thin-collimation helical CT examination of the abdomen and pelvis is performed without oral or intravenous contrast administration. Lack of oral and IV contrast utilization limits evaluation of the bowel and solid viscera, respectively. Patient refused IV contrast. COMPARISON: CT abdomen and pelvis with contrast dated 02/25/2017. FINDINGS: The lung bases are clear. No pleural or pericardial effusion. The heart is not enlarged. The liver, spleen, pancreas, adrenal glands, and kidneys are normal in appearance. The gallbladder is unremarkable and no biliary ductal dilatation is seen. No definite intraabdominal nor retroperitoneal lymphadenopathy is identified. The vasculature is normal in caliber. No definite pelvic mass no adenopathy. Trace free fluid in the cul-de-sac is possible. This is nonspecific. The uterus is without evidence of mass. The ovaries are nonenlarged. No intrinsic urinary bladder abnormality is seen. No gross bowel dilatation nor bowel wall thickening. The appendix is visualized and normal in appearance. There is a nondisplaced fracture of the left sacral ala. There is associated presacral fluid/hemorrhage without organized hematoma. No other acute fracture is seen. The sacroiliac joints and pubic symphysis appear intact. IMPRESSION: 1. NONDISPLACED FRACTURE OF THE LEFT SACRAL ALA WITH ASSOCIATED MINOR PRESACRAL FLUID/HEMORRHAGE. 2. TRACE FREE FLUID IN THE CUL-DE-SAC QUESTIONED. THIS IS NONSPECIFIC BUT POSSIBLY PHYSIOLOGIC. JOB NUMBER: [id number] MTDD
== END 2019-07-12 14:10 | disposition home or self-care (01) ==
LOC: ER 11:15
DX: S32.19XA Other fracture of sacrum, initial encounter for closed fracture (principal); F17.210 Nicotine dependence, cigarettes, uncomplicated; V80.010A Animal-rider injured by fall from or being thrown from horse in noncollision accident, initial encounter; Y93.52 Activity, horseback riding
CPT/HCPCS: 74176; 81001; 81025; 96374; 99283; 99284

== ENCOUNTER 2019-12-17 10:30 | Emergency (ER) | payer MEDICAID ==
--- NOTE | 2019-12-17 10:46 | Emergency Department Record ---
History of Present Illness - General Chief complaint: Pain Stated complaint: SWOLLEN PAINFUL JOINTS Time Seen by Provider: 12/17/19 10:38 Source: Patient - History of Present Illness Initial comments: The patient states she has had 3 days of swelling in her toes, feet, ankles, knees, hands, wrists, and fingers bilaterally. She states she work up with a very mild sore throat this morning which has improved. She denies fevers, chills, cough, larson, abdominal pain, rashes. She is on two kinds of female hor sandra due to stage IV endometriosis since August of 2017. She is being cared for at [facility] for this. She states that last June she was bucked off a horse and fractured her sacrum which no longer bothers her. Her mother denies any family history of rheumatologic disorders, clotting disorders, or other problems. - Related Data Home Medications Medication Instructions Recorded Confirmed Last Taken Cyclobenzaprine HCl [Flexeril] 10 mg PO ASDIR 12/17/19 12/17/19 Unknown Allergies Allergy/AdvReac Type Severity Reaction Status Date / Time No Known Allergies Allergy no Verified 07/12/19 11:27 allergies Review of Systems Reviewed: No additional complaints except as noted below Constitutional: Reports: As per HPI. Denies: Chills, Fever, Malaise, Night sweats, Weakness, Weight change Eyes: Reports: As per HPI. Denies: Eye discharge, Eye pain, Photophobia, Vision change ENT: Reports: As per HPI. Denies: Congestion, Dental pain, Ear pain, Epistaxis, Hearing loss, Throat pain Respiratory: Reports: As per HPI. Denies: Cough, Dyspnea, Hemoptysis, Stridor, Wheezes Cardiovascular: Reports: As per HPI. Denies: Arrhythmia, Chest pain, Dyspnea on exertion, Edema, Murmurs, Orthopnea, Palpitations, Paroxysmal nocturnal dys pnea, Rheumatic Fever, Syncope Endocrine: Reports: As per HPI. Denies: Fatigue, Heat or cold intolerance, Polydipsia, Polyuria Gastrointestinal: Reports: As per HPI. Denies: Abdominal pain, Constipation, Diarrhea, Hematemesis, Hematochezia, Melena, Nausea, Vomiting Genitourinary: Reports: As per HPI. Denies: Abnormal menses, Discharge, Dyspareunia, Dysuria, Frequency, Hematuria, Incontinence, Retention, Urgency Musculoskeletal: Reports: As per HPI. Denies: Arthralgia, Back pain, Gout, Joint swelling, Myalgia, Neck pain Skin: Reports: As per HPI. Denies: Bruising, Change in color, Change in hair/nails, Lesions, Pruritus, Rash Neurological: Reports: As per HPI. Denies: Abnormal gait, Confusion, Headache, Numbness, Paresthesias, Seizure, Tingling, Tremors, Vertigo, Weakness Psychiatric: Reports: As per HPI. Denies: Anxiety, Auditory hallucinations, Depression, Homicidal thoughts, Suicidal thoughts, Visual hallucinations Hematological/Lymphatic: Reports: As per HPI. Denies: Anemia, Blood Clots, Easy bleeding, Easy bruising, Swollen glands Past Medical History - SOCIAL HISTORY Smoking Status: Current every day smoker Drug Use: Occasional Drug Use Detail:: Marijuana - RESPIRATORY Hx Respiratory Disorders: No - CARDIOVASCULAR Hx Cardio Disorders: No - NEURO Hx Neuro Disorders: No - GI Hx GI Disorders: No - Hx Genitourinary Disorders: Yes Hx Kidney Stones: Yes (2008) Hx UTI: Yes Comment:: colposcopy, endometreosis - ENDOCRINE Hx Endocrine Disorders: No - MUSCULOSKELETAL Hx Musculoskeletal Disorders: No - PSYCH Hx Psych Problems: No - HEMATOLOGY/ONCOLOGY Hx Hematology/Oncology Disorders: No Family Medical History Hx Cancer: Mother, Grandparents *Cancer Comment: mom w/cervical Physical Exam - General General Appearance: Alert, Oriented x3, Cooperative, Mild distress (due to pain in joints) - Head Head exam: Normal inspection - Eye Eye exam: Normal appearance, PERRL, EOMI. negative: Conjunctival injection, Nystagmus Pupils: Normal accommodation - ENT ENT exam: Normal exam, Mucous membranes moist, Normal external ear exam, Normal orophraynx, TM's normal bilaterally Ear exam: Normal external inspection. negative: External canal tenderness Nasal Exam: Normal inspection. negative: Discharge, Sinus tenderness Mouth exam: Normal external inspection, Tongue normal Teeth exam: Normal inspection. negative: Dental caries Throat exam: Normal inspection, Tonsillar erythema (mild). negative: Tonsillomegaly, Tonsillar exudate - Neck Neck exam: Normal inspection, Full ROM. negative: Lymphadenopathy, Meningismus, Tenderness - Respiratory Respiratory exam: Normal lung sounds bilaterally. negative: Respiratory distress - Cardiovascular Cardiovascular Exam: Regular rate, Normal rhythm, Normal heart sounds - GI/Abdominal GI/Abdominal exam: Soft, Normal bowel sounds. negative: Tenderness - Rectal Rectal exam: Deferred - exam: Deferred - Extremities Extremities exam: Normal inspection, Full ROM, Joint swelling (swelling without erythema over toes, ankles, knees, elbows, wrists, MCP's and PIP's bilaterally.), Normal capillary refill. negative: Calf tenderness, Tenderness - Back Back exam: Reports: Normal inspection, Full ROM. Denies: Muscle spasm, Rash noted, Tenderness - Neurological Neurological exam: Alert, Normal gait, Oriented X3, Reflexes normal - Psychiatric Psychiatric exam: Normal affect, Normal mood - Skin Skin exam: Dry, Intact, Normal color, Warm Course - Reevaluation(s) Reevaluation #1: Patient states she has not improved with toradol or with fluids. She gave us a contaminated urine, and will give her PCP Dr. Bermudez another one at her appointment. Results reviewed, all questions answered. Swelling is unchanged. No known cause at this point. Further workup is recommended with her PCP. 12/17/19 14:21 Medical Decision Making - Management Options MDM Management: Additional Work-up Planned (e.g. ADM/Transfer/OP Study) (PCP follow up in office) - Data Complexity MDM Data: Labs Ordered and/or Reviewed, X-Ray Ordered and/or Reviewed (Venous Dopplers bilateral lower extremities negative per radiologist. ) - Lab Data Result diagrams: 12/17/19 11:00 12/17/19 11:00 Disposition Disposition: Discharge Clinical Impression: Edema of all four extremities Disposition: Home, Self-Care Condition: (1) Good Instructions: Leg Edema (ED), Edema (ED) Additional Instructions: Increase fluids to 8 ounces every hour while awake. Give your PCP a urine for analysis with your next office visit. Tylenol alternated with ibuprofen as needed as directed if helpful for comfort. Forms: Patient Portal Access Quality - Quality Measures Quality Measures: N/A - Blood Pressure Screening Does Patient Have Any of the Following: No Blood Pressure Classification: Normal BP Reading Systolic Measurement: 117 Diastolic Measurement: 78 Screening for High Blood Pressure: < Normal BP, F/U Not Required > [G8783]
[2019-12-17] MEDS ORDERED: KETOROLAC 30 MG/ML VIAL IVP ONE (11:03)
[2019-12-17] MEDS ORDERED: 0.9 % SODIUM CHLORIDE 1,000 ML BAG IV ONE ×2 (11:03→13:42)
[2019-12-17 11:26] LABS: ABSOLUTE NEUTROPHIL COUNT 4.83; HEMATOCRIT 39.8 % (35.0-47.0); HEMOGLOBIN 13.4 gm/dl (11.6-16.0); MEAN CELL VOLUME 92.3 fl (81-97); MEAN CORPUSCULAR HEMOGLOBIN 31.1 pg (27-33); MEAN CORPUSCULAR HGB CONC 33.7 g/dl (32-36); MEAN PLATELET VOLUME 9.6 fl (7.4-10.4); PLATELET COUNT 296 K/uL (130-400); RED BLOOD COUNT 4.31 M/uL (3.80-5.40); RED CELL DISTRIBUTION WIDTH 12.7 % (11.5-14.5); WHITE BLOOD COUNT W/O DIFF 6.7 K/uL (4.2-12.2)
[2019-12-17 11:40] LABS: BLOOD UREA NITROGEN 8 mg/dL (6-20); CREATININE 0.7 mg/dL (0.5-0.9); EST GLOMERULAR FILTRATION RATE > 60 mL/min
[2019-12-17 11:43] LABS: C-REACTIVE PROTEIN 0.74 mg/dL (<0.5); GLUCOSE,RANDOM 92 mg/dL (74-109)
[2019-12-17 12:06] LABS: PLATELET ESTIMATE NORMAL (NORMAL)
--- NOTE | 2019-12-17 12:07 | ULTRASOUND REPORT ---
EXAMINATION: Complete Right and Left Lower Extremity Venous Duplex Doppler Ultrasound EXAM DATE: 12/17/2019 12:04 PM TECHNIQUE: Real-time B-mode imaging with and without compression was used to evaluate the right and left lower extremity for deep venous thrombosis (DVT). Duplex Doppler with color and spectral Dopple r was used. INDICATION: bilateral leg swelling, joint pains X 3 days COMPARISON: None Right Lower Extremity Findings: Right Common Femoral Vein: No DVT. Right Femoral Vein: No DVT. Right Popliteal Vein: No DVT. Right Posterior Tibial Veins: No DVT. Right Peroneal Veins: No DVT. Right proximal Greater Saphenous Vein: No thrombus. Left Lower Extremity Findings: Left Common Femoral Vein: No DVT. Left Femoral Vein: No DVT. Left Popliteal Vein: No DVT. Left Posterior Tibial Veins: No DVT. Left Peroneal Veins: No DVT. Left proximal Greater Saphenous Vein: No thrombus. Duplex Doppler: Spectral Doppler waveforms show bilateral normal respiratory phasicity in the common femoral veins. Additional Findings: None. IMPRESSION: There is no deep venous thrombosis in the visualized deep veins of the right or left lower extremity. Dictated by: Clayton Ashraf MD on 12/17/2019 12:05 PM. .
[2019-12-17 12:12] LABS: ERYTHROCYTE SEDIMENTATION RATE 14 mm/hr (0-20)
[2019-12-17 14:07] LABS: URINE APPEARANCE SL CLOUDY; URINE BILIRUBIN NEGATIVE (NEGATIVE); URINE BLOOD MODERATE-LYSED (NEGATIVE); URINE COLOR YELLOW; URINE GLUCOSE (UA) NEGATIVE (NEGATIVE); URINE KETONE 80 mg/dL (NEGATIVE); URINE PROTEIN TRACE (NEGATIVE); URINE UROBILINOGEN 0.2 E.U./dL (0.20 - 1.00)
[2019-12-17 14:08] LABS: URINE BACTERIA 1+; URINE EPITHELIAL CELLS 21 - 35 (FEW); URINE LEUKOCYTE ESTERASE NEGATIVE (NEGATIVE); URINE MUCUS LIGHT; URINE NITRITE NEGATIVE (NEGATIVE); URINE RBC 0 - 2 (NONE SEEN); URINE WBC 0 - 2 (0-2/hpf)
== END 2019-12-17 15:24 | disposition home or self-care (01) ==
LOC: ER 10:30
DX: R60.1 Generalized edema (principal); M79.662 Pain in left lower leg; M79.661 Pain in right lower leg
CPT/HCPCS: 80048; 81001; 84550; 85027; 85610; 85651; 86140; 86430; 87880; 93970; 96374; 99284; J1885